=== PATIENT | male | born 1995 | race Caucasian/White ===

== ENCOUNTER 2016-08-26 20:17 | Emergency (ER) | payer OTHER ==
--- NOTE | 2016-08-26 22:08 | ED ORDER SUMMARY ---
..... Patient: YOGESH MELENDEZ OrderSheet [facility] VisitID: [id number] [place] [address] 21y, M Registration Date/Time: 08/26/2016 ORDER SHEET Weight: 108.8 kg (stated) Allergies: No Known Drug Allergy GENERAL ORDERS: Chest 2V (near syncope) Urgent (20:36 08/26/2016 EKoroleva P.A.-C) (Ack 20:38 SRedmond) (20:56 AMcQuoid ER Tech1) CBC w Diff Urgent (20:36 08/26/2016 EKoroleva P.A.-C) (Ack 20:38 SRedmond) (21:34 TLewis R.N.) BMP Urgent (20:36 08/26/2016 EKoroleva P.A.-C) (Ack 20:38 SRedmond) (21:34 TLewis R.N.) Continuity Tester (Continuous) (20:52 08/26/2016 EKoroleva P.A.-C) (20:55 HSoule) EKG - ER Stat (20:52 08/26/2016 EKoroleva P.A.-C) (20:53 AMcQuoid ER Tech1) Troponin-I Urgent (21:45 08/26/2016 EKoroleva P.A.-C) (Ack 21:51 SRedmond) (21:52 SRedmond) Vitals - Orthostatic (21:52 08/26/2016 EKoroleva P.A.-C) (21:53 SUMMERoeresvin) MEDICATION ORDERS: IV FLUIDS: ORDER SHEET NOTES: [Electronically signed by Inessa Snow PSaharaASahara-C (22:25 08/26/2016)] [Electronically signed by Lexi Eason (22:41 08/26/2016)] [Electronically locked/signed by Lexi Eason (22:41 08/26/2016)]
--- NOTE | 2016-08-26 22:08 | ED CLINICAL REPORT ---
Clinical Report - Physicians/Mid Levels [facility] [address] [place] [address] 08/26/2016 20:17 Patient: YOGESH MELENDEZ Time Seen: 20:37 Mar 12 2016. Arrived- By ambulance. Historian- patient and EMS personnel. HISTORY OF PRESENT ILLNESS The patient has recovered. Chief Complaint: SYNCOPE. This occurred just prior to arrival. Event was not witnessed. The patient had preceding symptoms of light-headedness and nausea. No preceding symptoms of dim vision. The patient felt faint and collapsed. No seizure activity or apnea noted. Had a single episode. The episode was brief. Currently he has no symptoms. No injuries noted. (A 21-year-old male today, while standing, sustained head pains, tunnel vision, loss of sound, and sat down, as he had a near syncopal episode, this happened previously 6 months in the past. Denies any medical problems. Denies any EtOH or drug use. Reports no new meds, increase stressors. no h/o anxiety). REVIEW OF SYSTEMS No headache, weakness, chest pain, abdominal pain or vomiting. No sore throat or difficulty with urination. All systems otherwise negative, except as recorded above. SOCIAL HISTORY Never smoker. No alcohol use or drug use. ADDITIONAL NOTES The nursing notes have been reviewed. PHYSICAL EXAM Vital Signs: 08/26/2016 20:20 BP: 129/63. HR: 98. RR: 20. O2 saturation: 100%. Temp: 98 F. Pain level now: 0/10. Appearance: Alert. Eyes: Pupils equal, round and reactive to light. No nystagmus. ENT: Normal ENT inspection. Moist mucous membranes. No depression of the gag reflex. No trouble handling secretions. The mucous membranes are not dry. Neck: Normal inspection. CVS: Normal heart rate and rhythm. Heart sounds normal. Respiratory: No respiratory distress. Abdomen: Soft. No abdominal tenderness or organomegaly. Back: Normal inspection. No CVA tenderness. Neuro: Alert. Oriented X 3. Mood/affect normal. Cranial nerves normal (as tested). No cerebellar findings. No motor deficit. No sensory deficit. LABS, X-RAYS, AND EKG EKG: EKG time: (2029). No acute process. No acute ischemia. Normal EKG. Rate: 82. Normal P waves. Normal PAULINA. Normal QRS complex. Normal axis. Normal ST and T waves and QT. The study has been interpreted contemporaneously. The study has been independently viewed by me. The EKG appears to be a good tracing. Laboratory Tests: CBC w Diff: (GABRIELLE: 08/26/2016 21:30) ( [facility] 08/26/2016 21:43) Final results Test Result Flag Units (Reference) WHITE BLOOD COUNT 8.5 K/uL (4.5-11.5) RED BLOOD COUNT 5.42 M/uL (4.50-5.90) HEMOGLOBIN 15.3 gm/dL (13.5-17.5) HEMATOCRIT 45.0 % (41.0-53.0) MEAN CELL VOLUME 83 fL (80-100) MEAN CORPUSCULAR HGB 28 pg (26-34) MEAN CORPUSCULAR HGB CONC 34 g/dL (31-37) RED CELL DISTRIBUTION WIDTH 12.6 % (11.6-14.8) PLATELET COUNT 231 K/uL (150-400) NEUTROPHIL % 64.9 % (50-75) LYMPH % 24.3 L % (25-40) MONO % 9.5 % (3-14) EOSINOPHIL % 0.9 % (0-4) BASOPHIL % 0.4 % (0-2) Troponin-I: (GABRIELLE: 08/26/2016 21:30) ( [facility] 08/26/2016 22:06) Final results Test Result Flag Units (Reference) TROPONIN I <0.05 L ng/mL (0.00-1.5) TROPONIN REFERENCE RANGE:<0.1 NEGATIVE0.1-1.5 INDETERMINANT>1.5 POSITIVE BMP: (GABRIELLE: 08/26/2016 21:30) ( [facility] 08/26/2016 21:53) Final results Test Result Flag Units (Reference) GLUCOSE 100 mg/dL (70-110) BUN 16 mg/dL (7-18) CREATININE 1.4 H mg/dL (0.6-1.3) Estimated GFR >60 mL/min Estimated GFR- >60 mL/min Note: Persistent reduction over 3 months in eGFR<60 mL/min/1.73 m2 defines CKD. Patients with eGFR values>=60 mL/min/1.73 m2 may also have CKD if evidence ofpersistent proteinuria. Additional information may be foundat www.kidney.org. SODIUM 142 mmol/L (136-145) POTASSIUM 3.4 L mmol/L (3.5-5.1) CHLORIDE 104 mmol/L (98-107) CARBON DIOXIDE 26 mmol/L (21-32) CALCIUM 9.2 mg/dL (8.5-10.1) . PROGRESS AND PROCEDURES Course of Care: Patient describes episodes where he is standing, likely vasovagal events, as he remembers almost all of the event. No seizure leg description. Stable. This is not the first incident of such. He is asymptomatic in the ER,workup including EKG chest x-ray, labs and troponin are unremarkable. Patient profile patient. 08/26/2016 21:59 BP: 120/66. HR: 78. 08/26/2016 21:57 BP: 126/69. HR: 81. 08/26/2016 21:56 BP: 116/61. HR: 74. Patient/family counseled. Disposition: Discharged. Condition: good. CLINICAL IMPRESSION Near syncope INSTRUCTIONS Do not work tomorrow. Drink plenty of fluids. No alcohol. ([address], [place] [id number] [facility]). OTC Medications: Take OTC medications according to label instructions. Available over the counter. Acetaminophen (available over the counter): take according to label instructions. Follow-up: Follow up with your doctor in three days. Understanding of the discharge instructions verbalized by patient. (Electronically signed by Inessa Snow P.A.-C 08/26/2016 22:25)
--- NOTE | 2016-08-26 22:08 | ED NURSING NOTES ---
Clinical Report - Nurses [facility] [address] [place] [address] 08/26/2016 20:17 Patient: YOGESH MELENDEZ TRIAGE Triage time 20:Aug 26 2016. Acuity: LEVEL 3. Chief Complaint: LIGHT HEADED and NEAR-SYNCOPE. 20:25 08/26/16. SEPSIS SCREEN: Sepsis Screen: negative. Negative (no infection suspected/documented). FELI COMA SCORE: [place] Coma Scale: 15- eyes open spontaneously (4); best verbal response- oriented x 4 (5); best motor response- obeys commands (6). --20:25 Lexi Eason 20:20 08/26/16. BP: 129/63. HR: 98. RR: 20. O2 saturation: 100% on room air. Temp: 98 F (oral). Pain level now: 0/10. --20:25 Lexi Eason. Weight: 108.8 kg stated. Height/Length: 71 inches Per Patient. BMI: 33.5. Growth Chart Percentile: Weight: 98.6%. Height/Length: 68.6%. --20:23 Lexi Eason. Medications None. --20:21 Lexi Eason. Medication/allergy information source: the patient. --20:25 Lexi Eason. Allergies No Known Drug Allergy. --20:21 Lexi Eason. History Arrived by EMS. Historian: patient. Unaccompanied. This started just prior to arrival. ( Patient reports being at work and he states he felt like he was going to pass out. He lowered himself to the floor. He denies hitting his head.). Treatment HOSPITAL CLEANER: See EMS report. EMS treatment HOSPITAL CLEANER verbally communicated and report reviewed. See report. BP: 170 / 80. HR: 90. ( 120/palp on second BP). PAST MEDICAL HX: Immunizations: up-to-date. SOCIAL HX: Never smoker. No alcohol use or drug use. No infectious disease exposure. ABUSE ASSESSMENT: No report of abuse. NUTRITIONAL RISK ASSESSMENT: The nutritional risk assessment revealed no deficiencies. FUNCTIONAL ASSESSMENT: Functional assessment: no impairments noted. LEARNING NEEDS ASSESSMENT: The learning needs assessment revealed no barriers. FALL RISK ASSESSMENT: Fall risk assessment completed. Risk factors identified include dizziness. Fall interventions initiated. Patient placed on stretcher. Side rails up x1. Brakes on Bed in low position. Admitted Attorneys at bedside. Call light in reach of patient. Instructed not to get up without assistance. SKIN INTEGRITY ASSESSMENT: Skin integrity risk assessment completed. No skin integrity risk identified. --20:25 Lexi Eason. PROBLEMS: no known problems. ADDITIONAL SURGERIES: Knee Surgery. --20:22 Lexi Eason. Interventions ID band on patient. To treatment room. --20:25 Lexi Eason. PHYSICAL ASSESSMENT To room via stretcher. Patient gowned. GENERAL / NEURO / PSYCH: Oriented X 4. Appears in no acute distress. Alert. Speech within normal limits. HEENT: No facial asymmetry noted. Pupils equal, round and reactive to light. RESPIRATORY: Respirations not labored. CVS: Normal sinus rhythm noted. GI / : Abdomen soft and nontender. SKIN: Skin is warm and dry. --20:25 Lexi Eason. NURSING PROGRESS NOTES The initial plan of care for this patient has been created This plan of care was discussed with the patient. front desk monitor, pulse oximeter and NIBP monitor placed on patient; monitor alarms on. Patient gowned. Head of bed elevated. Reassurance given to the patient. Two patient identifiers checked. Call light placed in reach. Side rails up x 1. Bed placed in lowest position. Brakes of bed on. Patient ready for evaluation- chart flagged and ED physician notified. ( Patient states he will not get an IV as he is fearful of needles.). --20:26 Lexi Eason ( EMS reports finger stick blood glucose 117 mg/dl). --20:28 Lexi Eason 20:30 08/26/16. EKG time: (20:30). EKG was performed by a tech and shown to the PA. --20:30 Marquis Morgan ( I attempted to draw the patient's labs, the patient refused the labs at this time and stated that he does not want labs drawn untill after all of his other tests.). --20:49 Dominic Cowart R.N. 21:32 08/26/16. BP: 122/62. HR: 87. RR: 20. O2 saturation: 95% on room air. Pain level now: 0/10. --21:32 Lexi Eason Checked patient name and birthdate: patient confirmed. Blood samples drawn from the left antecubital space with 23g butterfly by nurse ; labeled in presence of the patient and sent to lab. --21:34 Yuri Aguero R.N. <<STRICKEN ENTRY-- 21:57 08/26/16. --21:57 Marquis Morgan --END STRIKE>> Correction --21:57 Marquis Morgan 21:56 08/26/16. BP: 116/61 taken while lying. HR: 74. --21:57 Marquis Morgan 21:57 08/26/16. BP: 126/69 taken while sitting. HR: 81. --21:58 Marquis Morgan 21:59 08/26/16. BP: 120/66 taken while standing. HR: 78. --22:00 Marquis Morgan. DISPOSITION / DISCHARGE 22:10 08/26/16. Condition at departure: improved and stable. The goals identified in the patient's plan of care were met. No learning barriers present. Discharge instructions provided and reviewed with the patient. Reviewed need for increased fluid intake. Patient verbalized understanding. Written instructions provided in Mongolian. ( Follow up with your PCP in three days. Return if you experience a syncope episode or near syncope. Be sure to eat and drink through the day.). The patient was discharged by the physician lead recreation assistant. He was discharged home and accompanied by record press operator. He left the Emergency Department ambulatory and via private vehicle. Admitted Attorneys driving. FALL RISK ASSESSMENT: Fall risk assessment completed. No fall risk identified. --22:41 Lexi Eason 22:10 08/26/16. BP: 121/77. HR: 85. RR: 20. O2 saturation: 100% on room air. Temp: 98.4 F (oral). Pain level now: 0/10. --22:41 Lexi Eason. Locked/Released at 08/26/2016 22:41 by Lexi Eason,
--- NOTE | 2016-08-26 22:08 | ED NURSING NOTES ---
Clinical Report - Nurses [facility] [address] [place] [address] 08/26/2016 20:17 Patient: YOGESH MELENDEZ TRIAGE Triage time 20:Aug 26 2016. Acuity: LEVEL 3. Chief Complaint: LIGHT HEADED and NEAR-SYNCOPE. 20:25 08/26/16. SEPSIS SCREEN: Sepsis Screen: negative. Negative (no infection suspected/documented). FELI COMA SCORE: [place] Coma Scale: 15- eyes open spontaneously (4); best verbal response- oriented x 4 (5); best motor response- obeys commands (6). --20:25 Lexi Eason 20:20 08/26/16. BP: 129/63. HR: 98. RR: 20. O2 saturation: 100% on room air. Temp: 98 F (oral). Pain level now: 0/10. --20:25 Lexi Eason. Weight: 108.8 kg stated. Height/Length: 71 inches Per Patient. BMI: 33.5. Growth Chart Percentile: Weight: 98.6%. Height/Length: 68.6%. --20:23 Lexi Eason. Medications None. --20:21 Lexi Eason. Medication/allergy information source: the patient. --20:25 Lexi Eason. Allergies No Known Drug Allergy. --20:21 Lexi Eason. History Arrived by EMS. Historian: patient. Unaccompanied. This started just prior to arrival. ( Patient reports being at work and he states he felt like he was going to pass out. He lowered himself to the floor. He denies hitting his head.). Treatment KISS MIXER: See EMS report. EMS treatment KISS MIXER verbally communicated and report reviewed. See report. BP: 170 / 80. HR: 90. ( 120/palp on second BP). PAST MEDICAL HX: Immunizations: up-to-date. SOCIAL HX: Never smoker. No alcohol use or drug use. No infectious disease exposure. ABUSE ASSESSMENT: No report of abuse. NUTRITIONAL RISK ASSESSMENT: The nutritional risk assessment revealed no deficiencies. FUNCTIONAL ASSESSMENT: Functional assessment: no impairments noted. LEARNING NEEDS ASSESSMENT: The learning needs assessment revealed no barriers. FALL RISK ASSESSMENT: Fall risk assessment completed. Risk factors identified include dizziness. Fall interventions initiated. Patient placed on stretcher. Side rails up x1. Brakes on Bed in low position. Ship'S Officer at bedside. Call light in reach of patient. Instructed not to get up without assistance. SKIN INTEGRITY ASSESSMENT: Skin integrity risk assessment completed. No skin integrity risk identified. --20:25 Lexi Eason. PROBLEMS: no known problems. ADDITIONAL SURGERIES: Knee Surgery. --20:22 Lexi Eason. Interventions ID band on patient. To treatment room. --20:25 Lexi Eason. PHYSICAL ASSESSMENT To room via stretcher. Patient gowned. GENERAL / NEURO / PSYCH: Oriented X 4. Appears in no acute distress. Alert. Speech within normal limits. HEENT: No facial asymmetry noted. Pupils equal, round and reactive to light. RESPIRATORY: Respirations not labored. CVS: Normal sinus rhythm noted. GI / : Abdomen soft and nontender. SKIN: Skin is warm and dry. --20:25 Lexi Eason. NURSING PROGRESS NOTES The initial plan of care for this patient has been created This plan of care was discussed with the patient. alarm security or surveillance monitor, pulse oximeter and NIBP monitor placed on patient; monitor alarms on. Patient gowned. Head of bed elevated. Reassurance given to the patient. Two patient identifiers checked. Call light placed in reach. Side rails up x 1. Bed placed in lowest position. Brakes of bed on. Patient ready for evaluation- chart flagged and ED physician notified. ( Patient states he will not get an IV as he is fearful of needles.). --20:26 Lexi Eason ( EMS reports finger stick blood glucose 117 mg/dl). --20:28 Lexi Eason 20:30 08/26/16. EKG time: (20:30). EKG was performed by a tech and shown to the PA. --20:30 Marquis Morgan ( I attempted to draw the patient's labs, the patient refused the labs at this time and stated that he does not want labs drawn untill after all of his other tests.). --20:49 Dominic Cowart R.N. 21:32 08/26/16. BP: 122/62. HR: 87. RR: 20. O2 saturation: 95% on room air. Pain level now: 0/10. --21:32 Lexi Eason Checked patient name and birthdate: patient confirmed. Blood samples drawn from the left antecubital space with 23g butterfly by nurse ; labeled in presence of the patient and sent to lab. --21:34 Yuri Aguero R.N. <<STRICKEN ENTRY-- 21:57 08/26/16. --21:57 Marquis Morgan --END STRIKE>> Correction --21:57 Marquis Morgan 21:56 08/26/16. BP: 116/61 taken while lying. HR: 74. --21:57 Marquis Morgan 21:57 08/26/16. BP: 126/69 taken while sitting. HR: 81. --21:58 Marquis Morgan 21:59 08/26/16. BP: 120/66 taken while standing. HR: 78. --22:00 Marquis Morgan. DISPOSITION / DISCHARGE 22:10 08/26/16. Condition at departure: improved and stable. The goals identified in the patient's plan of care were met. No learning barriers present. Discharge instructions provided and reviewed with the patient. Reviewed need for increased fluid intake. Patient verbalized understanding. Written instructions provided in German. ( Follow up with your PCP in three days. Return if you experience a syncope episode or near syncope. Be sure to eat and drink through the day.). The patient was discharged by the physician nurses assistant. He was discharged home and accompanied by wind energy project manager. He left the Emergency Department ambulatory and via private vehicle. Ship'S Officer driving. FALL RISK ASSESSMENT: Fall risk assessment completed. No fall risk identified. --22:41 Lexi Eason 22:10 08/26/16. BP: 121/77. HR: 85. RR: 20. O2 saturation: 100% on room air. Temp: 98.4 F (oral). Pain level now: 0/10. --22:41 Lexi Eason. Locked/Released at 08/26/2016 22:41 by Lexi Eason,
--- NOTE | 2016-08-26 22:08 | ED ORDER SUMMARY ---
..... Patient: YOGESH MELENDEZ OrderSheet [facility] VisitID: [id number] [place] [address] 21y, M Registration Date/Time: 08/26/2016 ORDER SHEET Weight: 108.8 kg (stated) Allergies: No Known Drug Allergy GENERAL ORDERS: Chest 2V (near syncope) Urgent (20:36 08/26/2016 EKoroleva P.A.-C) (Ack 20:38 SRedmond) (20:56 AMcQuoid ER Tech1) CBC w Diff Urgent (20:36 08/26/2016 EKoroleva P.A.-C) (Ack 20:38 SRedmond) (21:34 TLewis R.N.) BMP Urgent (20:36 08/26/2016 EKoroleva P.A.-C) (Ack 20:38 SRedmond) (21:34 TLewis R.N.) Structural Steel Ironworker (Continuous) (20:52 08/26/2016 EKoroleva P.A.-C) (20:55 HSoule) EKG - ER Stat (20:52 08/26/2016 EKoroleva P.A.-C) (20:53 AMcQuoid ER Tech1) Troponin-I Urgent (21:45 08/26/2016 EKoroleva P.A.-C) (Ack 21:51 SRedmond) (21:52 SRedmond) Vitals - Orthostatic (21:52 08/26/2016 EKoroleva P.A.-C) (21:53 SUMMERoeresvin) MEDICATION ORDERS: IV FLUIDS: ORDER SHEET NOTES: [Electronically signed by Inessa Snow PSaharaASahara-C (22:25 08/26/2016)] [Electronically signed by Lexi Eason (22:41 08/26/2016)] [Electronically locked/signed by Lexi Eason (22:41 08/26/2016)]
--- NOTE | 2016-08-26 22:41 | ED MAR SUMMARY ---
..... Medication Administration Record [facility] [address] [place], [place] [id number] Patient: YOGESH MELENDEZ Visit ID: [id number] 21y, M Weight: 108.8 kg Height/Length: 71 in BMI: 33.5 ALLERGIES: No Known Drug Allergy
--- NOTE | 2016-08-26 22:41 | ED DISCHARGE INSTRUCTIONS ---
Patient: YOGESH MELENDEZ General Instructions [facility] VisitID: [id number] [address] [place] [address] 21y, M Registration Date/Time: 08/26/2016 Near syncope INSTRUCTIONS Do not work tomorrow. Drink plenty of fluids. No alcohol. ([address] [place] [address] [facility]). OTC Medications: Take OTC medications according to label instructions. Available over the counter. Acetaminophen (available over the counter): take according to label instructions. Follow-up: Follow up with your doctor in three days. Understanding of the discharge instructions verbalized by patient. ADDITIONAL INFORMATION Near-Fainting:Uncertain Cause Fainting (syncope) is a temporary loss of consciousness ("passing out"). It occurs when blood flow to the brain is reduced. Near-fainting ("near-syncope") is like fainting, but you do not fully "pass out." The common minor causes of near fainting include sudden fear, pain, emotional stress, overexertion, or quickly standing up after sitting or lying for a long time. The more serious causes for near fainting are due to either a very slow or very fast heart beat, dehydration, anemia, blood loss, problems related to the heart, or taking too much high blood pressure medicine. The exact cause of your episode is not certain. More tests may be required. Therefore, it is important that you follow up with your doctor as advised. Home Care: 1) Rest today. Resume your normal activities as soon as you are feeling back to normal. 2) If you become light-headed or dizzy, lie down right away or sit with your head between your knees. 3) Because we do not know the exact cause of your near fainting spell, another spell could occur without warning. Therefore, do not drive a car or use dangerous equipment. D o not take a bath alone (use a shower instead). Do not swim alone. You can resume these activities when your doctor says that you are no longer in danger of having a near fainting spell. 4) Stay well hydrated by drinking enough fluid each day. Follow Up with your doctor as instructed. Get Prompt Medical Attention if any of the following occur: -- Another fainting spell occurs, and it is not explained by the common causes listed above -- Chest, arm, neck, jaw, back or abdominal pain -- Shortness of breath -- Weakness, tingling or numbness in one side of the face, one arm or leg -- Slurred speech, confusion, trouble walking or seeing -- Seizure -- Blood in vomit, stools (black or red color) -- (In women) unexpected vaginal bleeding Near-Fainting:Vagal Reaction Fainting (syncope) is a temporary loss of consciousness ("passing out"). It occurs when blood flow to the brain is reduced. Your doctor believes that your episode was due to a common vagal reaction. A vagal reaction is a reflex response that causes the pulse to slow down. If the pulse is low enough, the blood pressure falls and causes fainting or near-fainting. Lying down usually stops the reaction within 60 seconds. This reflex response can occur during sudden fear, severe pain, emotional stress, overexertion or suddenly standing up after sitting or lying for a long time. Home Care: 1) Rest today and resume your normal activities as soon as you are feeling back to normal. 2) If you become light-headed or dizzy, lie down immediately or sit with your head lowered between your knees. Follow Up with your doctor as instructed. Get Prompt Medical Attention if any of the following occur: -- Another fainting spell occurs, which is not explained by the common causes listed above -- Chest, arm, neck, jaw, back or abdominal pain -- Shortness of breath -- Weakness, tingling or numbness in one side of the face, one arm or leg -- Slurred speech, confusion, difficulty walking or seeing -- Seizure -- Blood in vomit, stools (black or red color) -- (In women) unexpected vaginal bleeding You have been given the following additional information: Near Syncope, Unknown Near Syncope, Vasovagal Do not work tomorrow. (Electronically signed by Inessa Snow P.A.-C 08/26/2016 22:25)
--- NOTE | 2016-08-26 22:41 | ED MED RECONCILIATION SUMMARY ---
Patient: YOGESH MELENDEZ Medication Reconciliation Report [facility] VisitID: [id number] [place] [address] 21y, M Registration Date/Time: 08/26/2016 Weight: 108.8 kg Height/Length: 71 in. BMI: 33.5 ALLERGIES: No Known Drug Allergy The patient's Home Medications are listed below: NONE. The source(s) of the original Home Medication information: patient The following Medications were given to the patient in the Emergency Department: None. The following Medications were prescribed to the patient: Take OTC medications according to label instructions. Available over the counter. -- Inessa Snow, P.A.-C Acetaminophen (available over the counter): take according to label instructions. -- Inessa Snow, P.A.-C
--- NOTE | 2016-08-26 22:41 | ED MAR SUMMARY ---
..... Medication Administration Record [facility] [address] [place], [place] [id number] Patient: YOGESH MELENDEZ Visit ID: [id number] 21y, M Weight: 108.8 kg Height/Length: 71 in BMI: 33.5 ALLERGIES: No Known Drug Allergy
--- NOTE | 2016-08-26 22:41 | ED MED RECONCILIATION SUMMARY ---
Patient: YOGESH MELENDEZ Medication Reconciliation Report [facility] VisitID: [id number] [place] [address] 21y, M Registration Date/Time: 08/26/2016 Weight: 108.8 kg Height/Length: 71 in. BMI: 33.5 ALLERGIES: No Known Drug Allergy The patient's Home Medications are listed below: NONE. The source(s) of the original Home Medication information: patient The following Medications were given to the patient in the Emergency Department: None. The following Medications were prescribed to the patient: Take OTC medications according to label instructions. Available over the counter. -- Inessa Snow, P.A.-C Acetaminophen (available over the counter): take according to label instructions. -- Inessa Snow, P.A.-C
--- NOTE | 2016-08-26 22:41 | ED DISCHARGE INSTRUCTIONS ---
Patient: YOGESH MELENDEZ General Instructions [facility] VisitID: [id number] [address] [place] [address] 21y, M Registration Date/Time: 08/26/2016 Near syncope INSTRUCTIONS Do not work tomorrow. Drink plenty of fluids. No alcohol. ([address] [place] [address] [facility]). OTC Medications: Take OTC medications according to label instructions. Available over the counter. Acetaminophen (available over the counter): take according to label instructions. Follow-up: Follow up with your doctor in three days. Understanding of the discharge instructions verbalized by patient. ADDITIONAL INFORMATION Near-Fainting:Uncertain Cause Fainting (syncope) is a temporary loss of consciousness ("passing out"). It occurs when blood flow to the brain is reduced. Near-fainting ("near-syncope") is like fainting, but you do not fully "pass out." The common minor causes of near fainting include sudden fear, pain, emotional stress, overexertion, or quickly standing up after sitting or lying for a long time. The more serious causes for near fainting are due to either a very slow or very fast heart beat, dehydration, anemia, blood loss, problems related to the heart, or taking too much high blood pressure medicine. The exact cause of your episode is not certain. More tests may be required. Therefore, it is important that you follow up with your doctor as advised. Home Care: 1) Rest today. Resume your normal activities as soon as you are feeling back to normal. 2) If you become light-headed or dizzy, lie down right away or sit with your head between your knees. 3) Because we do not know the exact cause of your near fainting spell, another spell could occur without warning. Therefore, do not drive a car or use dangerous equipment. D o not take a bath alone (use a shower instead). Do not swim alone. You can resume these activities when your doctor says that you are no longer in danger of having a near fainting spell. 4) Stay well hydrated by drinking enough fluid each day. Follow Up with your doctor as instructed. Get Prompt Medical Attention if any of the following occur: -- Another fainting spell occurs, and it is not explained by the common causes listed above -- Chest, arm, neck, jaw, back or abdominal pain -- Shortness of breath -- Weakness, tingling or numbness in one side of the face, one arm or leg -- Slurred speech, confusion, trouble walking or seeing -- Seizure -- Blood in vomit, stools (black or red color) -- (In women) unexpected vaginal bleeding Near-Fainting:Vagal Reaction Fainting (syncope) is a temporary loss of consciousness ("passing out"). It occurs when blood flow to the brain is reduced. Your doctor believes that your episode was due to a common vagal reaction. A vagal reaction is a reflex response that causes the pulse to slow down. If the pulse is low enough, the blood pressure falls and causes fainting or near-fainting. Lying down usually stops the reaction within 60 seconds. This reflex response can occur during sudden fear, severe pain, emotional stress, overexertion or suddenly standing up after sitting or lying for a long time. Home Care: 1) Rest today and resume your normal activities as soon as you are feeling back to normal. 2) If you become light-headed or dizzy, lie down immediately or sit with your head lowered between your knees. Follow Up with your doctor as instructed. Get Prompt Medical Attention if any of the following occur: -- Another fainting spell occurs, which is not explained by the common causes listed above -- Chest, arm, neck, jaw, back or abdominal pain -- Shortness of breath -- Weakness, tingling or numbness in one side of the face, one arm or leg -- Slurred speech, confusion, difficulty walking or seeing -- Seizure -- Blood in vomit, stools (black or red color) -- (In women) unexpected vaginal bleeding You have been given the following additional information: Near Syncope, Unknown Near Syncope, Vasovagal Do not work tomorrow. (Electronically signed by Inessa Snow P.A.-C 08/26/2016 22:25)
--- NOTE | 2016-08-26 23:16 | DIAGNOSTIC IMAGING REPORT ---
PROCEDURE: XR CHEST 2 VIEW INDICATION: CHEST PAIN TECHNIQUE: Two views. COMPARISON: None. FINDINGS: The cardiomediastinal contour and central vasculature are within normal limits. The lungs are clear without focal consolidation, pleural effusion, or pneumothorax. The visualized osseous structures are intact. IMPRESSION: 1. Normal chest.
== END 2016-08-26 22:10 | disposition home or self-care (01) ==
LOC: ED SRH 20:17
DX: R55 Syncope and collapse (principal)
CPT/HCPCS: 90047; 90616; 95059